=== PATIENT | female | born 2000 | race Caucasian/White ===

== ENCOUNTER 2020-10-29 21:57 | Emergency (ER) | payer MEDICAID, SELFPAY ==
--- NOTE | ~2020-10-29 | XR_ITS ---
EXAMINATION: PA AND LATERAL CHEST, THORACIC SPINE CLINICAL INFORMATION: Chest injury with question of pneumothorax COMPARISON: None TECHNIQUE: 2 views chest, 3 views thoracic spine FINDINGS: Chest: No significant abnormality seen involving the heart lungs mediastinum or bony thorax. Thoracic spine: The thoracic spine appears normal. No fractures are seen. The paraspinal soft tissues appear normal. XR/XR thoracic spine 2V IMPRESSION: Negative radiographs of the chest and thoracic spine.
--- NOTE | ~2020-10-29 | XR_ITS ---
EXAMINATION: PA AND LATERAL CHEST, THORACIC SPINE CLINICAL INFORMATION: Chest injury with question of pneumothorax COMPARISON: None TECHNIQUE: 2 views chest, 3 views thoracic spine FINDINGS: Chest: No significant abnormality seen involving the heart lungs mediastinum or bony thorax. Thoracic spine: The thoracic spine appears normal. No fractures are seen. The paraspinal soft tissues appear normal. XR/XR chest 2V IMPRESSION: Negative radiographs of the chest and thoracic spine.
[2020-10-29 22:14] VITALS: BP 121/69; PULSE 100; RESP 16; TEMP 37.2; O2SAT 98; BMI 30.2
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
[2020-10-29] MEDS: Acetaminophen 325 MG TABLET 975 MG PO (22:56)
== END 2020-10-30 00:39 | disposition home or self-care (01) ==
PROVIDERS: Emergency Provider Emergency Medicine Emergency Medical Services
DX: S29.012A Strain of muscle and tendon of back wall of thorax, initial encounter (principal); X58.XXXA Exposure to other specified factors, initial encounter; F12.90 Cannabis use, unspecified, uncomplicated; Y93.89 Activity, other specified; Y92.019 Unspecified place in single-family (private) house as the place of occurrence of the external cause; Y99.9 Unspecified external cause status
CPT/HCPCS: 71046; 72070; 99283; 99284